=== PATIENT | male | born 1995 | race Caucasian/White ===

== ENCOUNTER 2022-05-28 17:04 | Inpatient (IN) ==
[2022-05-28] MEDS ORDERED: SODIUM CHLORIDE 0.9% 1000ML 2,000 ML IV ONE (17:44)
--- NOTE | 2022-05-28 17:45 | Emergency Department Note ---
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 She was concerned as he intermittently gets headaches and then will use Tylenol, Motrin, and other [id number] medications. She was concerned that he may have taken too much Tylenol. She generally takes the bottles away from him but sometimes he will walk to the [employer] store and purchase more. He notes he has not taken any for the past 2 days. He denies any headache or change in vision. No chest pain or shortness of breath. No belly pain. No nausea, vomiting, or diarrhea. No dysuria, urgency, or frequency. He denies all complaints at this time. Mom notes that he did get a little agitated last night which sometimes does happen. PAST MEDICAL HISTORY:See Below PAST SURGICAL HISTORY:See Below FAMILY HISTORY:See Below SOCIAL HISTORY:See Below HOME MEDICATIONS:See Below ALLERGIES:See Below VITALS:See Below PHYSICAL EXAMINATION: GENERAL: Sitting up in bed, alert, well appearing, well nourished, no distress, non-toxic EYE EXAM: normal conjunctiva. PERRL and EOM's grossly intact. OROPHARYNX: no exudate, no erythema, lips, buccal mucosa, and tongue normal and mucous membranes are moist NECK: supple, no nuchal rigidity, no adenopathy, non-tender LUNGS: Clear to auscultation. Normal chest wall mechanics HEART: no murmurs, S1 normal and S2 normal ABDOMEN: abdomen soft, non-tender, normo-active bowel sounds, no masses, no rebound or guarding. UPPER EXTREMITIES: upper extremities are grossly normal. LOWER EXTREMITIES: No pitting edema. NEURO EXAM: Normal sensorium, cranial nerves II-XII grossly intact, normal speech, no gross weakness of arms, no gross weakness of legs. 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 External records were reviewed. IV was established blood work was obtained. Labs show mild leukocytosis 17,000. No significant anemia. INR 1.2 mild transaminitis and a T bili of 1.2. Lipase was unremarkable. UA was clean. Tox was negative. COVID was negative. CT abdomen pelvis was unremarkable. Discussed with his per poison control. They recommended admission and N-acetylcysteine. This was given. Discussed with the hospitalist Dr. Calix regards to presentation work-up and conversation with poison control. He was in agreement to admit the patient for further work-up. Triage Nursing notes reviewed. Limited review of prior medical records performed Vital Signs: reviewed and remarkable for no significant abnormalities Differential diagnosis: Differential diagnoses includes but is not limited to gastritis, peptic ulcer disease, GERD, gallbladder disease, pancreatitis, small bowel obstruction, appendicitis, diverticulitis, hernia, urinary tract infection, torsion, perforation, trauma, infectious. ER treatment provided: See below Diagnostics interpreted by me include EKG and cardiac monitoring as listed below: -Cardiac Monitoring: An order was placed for continuous cardiac monitoring. The monitor shows a rate of 92 with sinus rhythm. -ECG: none -Laboratory studies:Interpreted by me as stated above in MDM and shown below. Imaging studies: Xrays: As interpreted by me:none CTs show: CT abdomen pelvis is unremarkable Consultation(s): Discussed with [place] poison control and they recommended starting N-acetylcysteine. discussed with the hospitalist for further evaluation admission Procedures:none Critical Care: None Past Med/Surg History Family History Other Hypertension No family history of adverse response to anesthesia No family history of bleeding disorder Social History Smoking Status: Never smoker Hx Alcohol Use: Yes Alcohol Intake Frequency Comment: 1-2 a week Hx Substance Use: No Preferred Language: [place] Feels Safe at Home: Yes Allergies Allergies Allergy/AdvReac Type Severity Reaction Status Date / Time No Known Drug Allergies Allergy Unknown Verified 05/28/22 20:30 Home Meds Previous Rx's Medication Instructions Recorded cholecalciferol (vitamin D3) 50 50 mcg PO TID #90 caps 08/24/21 mcg (2,000 unit) capsule nortriptyline 10 mg capsule 10 mg PO HS #30 caps 02/08/22 cyanocobalamin (vitamin B-12) 1,000 mcg IM .COMPLEX #1 mL 04/12/22 1,000 mcg/mL injection solution Results & Data (ED) Vital Signs Vital Signs - 24 hr 05/28/22 17:12 05/28/22 18:11 05/28/22 21:00 Temperature 36.6 C Temperature Source Temporal Artery Scan Pulse Rate 126 H Pulse Rate [Apical] 110 H 97 H Respiratory Rate 18 33 H 18 Respiratory Effort / Characteristics Non-Labored Spontaneous Respiratory Depth Normal Blood Pressure 148/98 H Blood Pressure [Right Arm] 155/92 H 151/86 H Blood Pressure Mean 114 Blood Pressure Mean [Right Arm] 113 107 Blood Pressure Position Sitting Pulse Oximetry 96 98 97 Oxygen Delivery Method Room Air Room Air Sepsis Recent Fever Within 48 Hours No Sepsis New/Unexplained Change in Mental Status N/A Sepsis Action Taken by Nursing No Action Required Laboratory Data 05/28/22 18:11 05/28/22 18:11 Lab Results 05/28/22 05/28/22 05/28/22 Range/Units 17:49 17:49 18:06 WBC (4.8-10.8) K/ul RBC (4.63-6.08) M/uL Hgb (14.0-18.0) g/dl Hct (40.1-51.0) % MCV (80.0-100.0) fL MCH (25.0-34.0) pg MCHC (32.0-36.0) g/dL RDW Std Deviation (36.4-46.3) fL RDW Coeff of Matthew (11.5-14.5) % Plt Count (130-400) K/uL MPV (9.4-12.4) fL Immature Gran % (Auto) % Neut % (Auto) % Lymph % (Auto) % [place] % (Auto) % Eos % (Auto) % Baso % (Auto) % Neut # (Auto) (1.4-6.5) K/uL Lymph # (Auto) (1.2-3.4) K/uL [place] # (Auto) (0.24-0.82) K/uL Eos # (Auto) (0-0.50) K/uL Baso # (Auto) (0-0.2) K/uL Immature Gran # (Auto) (0.00-0.02) K/uL PT (9.0-12.0) Seconds INR (0.9-1.1) APTT (21.0-31.0) Seconds PTT Ratio Sodium (136-145) mmol/L Potassium (3.5-5.1) mmol/L Chloride (98-107) mmol/L Carbon Dioxide (21-32) mmol/L Anion Gap (3-11) BUN (6-23) mg/dl Creatinine (0.6-1.4) mg/dl Est Cr Clr Drug Dosing ml/min Est GFR ( Amer) ml/min Est GFR (Non-Af Amer) ml/min BUN/Creatinine Ratio (10-20) Glucose (70-99(Fasting)) mg/dl Calcium (8.5-10.1) mg/dl Total Bilirubin (0.2-1.0) mg/dl AST (13-39) U/L ALT (7-52) U/L Alkaline Phosphatase (34-104) U/L Total Protein (6.0-8.3) gm/dl Albumin (3.4-5.0) gm/dl Globulin (2.5-4.0) gm/dl Albumin/Globulin Ratio (0.9-2) Lipase (11-82) U/L Urine Color Yellow Urine Appearance Clear (Clear) Urine pH 7.5 (4.5-7.5) Ur Specific [place] 1.023 (1.000-1.030) Urine Protein Trace H (Negative) Urine Glucose (UA) Negative (Negative) Urine Ketones Negative (Negative) Urine Blood Negative (Negative) Urine Nitrite Negative (Negative) Urine Bilirubin Negative (Negative) Urine Urobilinogen Negative (Negative) Ur Leukocyte Esterase Negative (Negative) Urine WBC (Auto) 1-5 (0-5) /hpf Urine RBC (Auto) 0-4 (0-4) /hpf U Hyaline Cast (Auto) 1-5 (0-5) /lpf U Epithel Cells (Auto) 10-20 H (0-5) /lpf Urine Bacteria (Auto) Negative (Negative) Salicylates (3.0-30) mg/dl Urine Opiates Screen Neg (Neg) Ur Methadone, Qual Neg (Neg) Acetaminophen (10-30) ug/ml Urine Barbiturates Neg (Neg) Ur Phencyclidine (PCP) Neg (Neg) U Amphetamin/Meth Scrn Neg (Neg) MDMA (Ecstasy) Screen Neg (Neg) U Benzodiazepines Scrn Neg (Neg) Ur Cocaine Metabolite Neg (Neg) U Marijuana (THC) Screen Neg (Neg) SARS-CoV-2, RNA, NAAT NEGATIVE (NEGATIVE) 05/28/22 05/28/22 05/28/22 Range/Units 18:11 18:11 18:11 WBC 17.75 H (4.8-10.8) K/ul RBC 5.43 (4.63-6.08) M/uL Hgb 16.4 (14.0-18.0) g/dl Hct 46.6 (40.1-51.0) % MCV 85.8 (80.0-100.0) fL MCH 30.2 (25.0-34.0) pg MCHC 35.2 (32.0-36.0) g/dL RDW Std Deviation 38.3 (36.4-46.3) fL RDW Coeff of Matthew 12.2 (11.5-14.5) % Plt Count 273 (130-400) K/uL MPV 9.5 (9.4-12.4) fL Immature Gran % (Auto) 0.3 % Neut % (Auto) 74.2 % Lymph % (Auto) 18.4 % [place] % (Auto) 6.4 % Eos % (Auto) 0.4 % Baso % (Auto) 0.3 % Neut # (Auto) 13.17 H (1.4-6.5) K/uL Lymph # (Auto) 3.26 (1.2-3.4) K/uL [place] # (Auto) 1.14 H (0.24-0.82) K/uL Eos # (Auto) 0.07 (0-0.50) K/uL Baso # (Auto) 0.06 (0-0.2) K/uL Immature Gran # (Auto) 0.05 H (0.00-0.02) K/uL PT 12.4 H (9.0-12.0) Seconds INR 1.2 H (0.9-1.1) APTT 27.9 (21.0-31.0) Seconds PTT Ratio 1.0 Sodium 140 (136-145) mmol/L Potassium 3.6 (3.5-5.1) mmol/L Chloride 107 (98-107) mmol/L Carbon Dioxide 23 (21-32) mmol/L Anion Gap 10 (3-11) BUN 19 (6-23) mg/dl Creatinine 0.84 (0.6-1.4) mg/dl Est Cr Clr Drug Dosing 177.7 ml/min Est GFR ( Amer) 138.1 ml/min Est GFR (Non-Af Amer) 119.2 ml/min BUN/Creatinine Ratio 22.6 H (10-20) Glucose 92 (70-99(Fasting)) mg/dl Calcium 9.5 (8.5-10.1) mg/dl Total Bilirubin 1.2 H (0.2-1.0) mg/dl AST 53 H (13-39) U/L ALT 75 H (7-52) U/L Alkaline Phosphatase 56 (34-104) U/L Total Protein 7.6 (6.0-8.3) gm/dl Albumin 4.5 (3.4-5.0) gm/dl Globulin 3.1 (2.5-4.0) gm/dl Albumin/Globulin Ratio 1.5 (0.9-2) Lipase 45 (11-82) U/L Urine Color Urine Appearance (Clear) Urine pH (4.5-7.5) Ur Specific [place] (1.000-1.030) Urine Protein (Negative) Urine Glucose (UA) (Negative) Urine Ketones (Negative) Urine Blood (Negative) Urine Nitrite (Negative) Urine Bilirubin (Negative) Urine Urobilinogen (Negative) Ur Leukocyte Esterase (Negative) Urine WBC (Auto) (0-5) /hpf Urine RBC (Auto) (0-4) /hpf U Hyaline Cast (Auto) (0-5) /lpf U Epithel Cells (Auto) (0-5) /lpf Urine Bacteria (Auto) (Negative) Salicylates (3.0-30) mg/dl Urine Opiates Screen (Neg) Ur Methadone, Qual (Neg) Acetaminophen (10-30) ug/ml Urine Barbiturates (Neg) Ur Phencyclidine (PCP) (Neg) U Amphetamin/Meth Scrn (Neg) MDMA (Ecstasy) Screen (Neg) U Benzodiazepines Scrn (Neg) Ur Cocaine Metabolite (Neg) U Marijuana (THC) Screen (Neg) SARS-CoV-2, RNA, NAAT (NEGATIVE) 05/28/22 05/28/22 Range/Units 18:11 21:04 WBC (4.8-10.8) K/ul RBC (4.63-6.08) M/uL Hgb (14.0-18.0) g/dl Hct (40.1-51.0) % MCV (80.0-100.0) fL MCH (25.0-34.0) pg MCHC (32.0-36.0) g/dL RDW Std Deviation (36.4-46.3) fL RDW Coeff of Matthew (11.5-14.5) % Plt Count (130-400) K/uL MPV (9.4-12.4) fL Immature Gran % (Auto) % Neut % (Auto) % Lymph % (Auto) % [place] % (Auto) % Eos % (Auto) % Baso % (Auto) % Neut # (Auto) (1.4-6.5) K/uL Lymph # (Auto) (1.2-3.4) K/uL [place] # (Auto) (0.24-0.82) K/uL Eos # (Auto) (0-0.50) K/uL Baso # (Auto) (0-0.2) K/uL Immature Gran # (Auto) (0.00-0.02) K/uL PT (9.0-12.0) Seconds INR (0.9-1.1) APTT (21.0-31.0) Seconds PTT Ratio Sodium (136-145) mmol/L Potassium (3.5-5.1) mmol/L Chloride (98-107) mmol/L Carbon Dioxide (21-32) mmol/L Anion Gap (3-11) BUN (6-23) mg/dl Creatinine (0.6-1.4) mg/dl Est Cr Clr Drug Dosing ml/min Est GFR ( Amer) ml/min Est GFR (Non-Af Amer) ml/min BUN/Creatinine Ratio (10-20) Glucose (70-99(Fasting)) mg/dl Calcium (8.5-10.1) mg/dl Total Bilirubin (0.2-1.0) mg/dl AST (13-39) U/L ALT (7-52) U/L Alkaline Phosphatase (34-104) U/L Total Protein (6.0-8.3) gm/dl Albumin (3.4-5.0) gm/dl Globulin (2.5-4.0) gm/dl Albumin/Globulin Ratio (0.9-2) Lipase (11-82) U/L Urine Color Urine Appearance (Clear) Urine pH (4.5-7.5) Ur Specific [place] (1.000-1.030) Urine Protein (Negative) Urine Glucose (UA) (Negative) Urine Ketones (Negative) Urine Blood (Negative) Urine Nitrite (Negative) Urine Bilirubin (Negative) Urine Urobilinogen (Negative) Ur Leukocyte Esterase (Negative) Urine WBC (Auto) (0-5) /hpf Urine RBC (Auto) (0-4) /hpf U Hyaline Cast (Auto) (0-5) /lpf U Epithel Cells (Auto) (0-5) /lpf Urine Bacteria (Auto) (Negative) Salicylates < 3.0 L (3.0-30) mg/dl Urine Opiates Screen (Neg) Ur Methadone, Qual (Neg) Acetaminophen < 3 L (10-30) ug/ml Urine Barbiturates (Neg) Ur Phencyclidine (PCP) (Neg) U Amphetamin/Meth Scrn (Neg) MDMA (Ecstasy) Screen (Neg) U Benzodiazepines Scrn (Neg) Ur Cocaine Metabolite (Neg) U Marijuana (THC) Screen (Neg) SARS-CoV-2, RNA, NAAT NEGATIVE (NEGATIVE) Administered Medications Discontinued Medications Sodium Chloride (Nss 1000ml) 2,000 mls @ 999 mls/hr IV .Q2H1M ONE Stop: 05/28/22 19:44 Last Infusion: 05/28/22 21:42 Dose: 0 mls/hr Documented By: Admin: 05/28/22 18:09 Dose: 999 mls/hr Documented By: LUCINDA Acetylcysteine 15,000 mg/ (Dextrose) 275 mls @ 275 mls/hr IV NOW ONE; Protocol Stop: 05/28/22 22:44 Last Admin: 05/28/22 22:00 Dose: 275 mls/hr Documented By: ELIZABETH Ioversol (Optiray 350 100ml) 87 ml IV ONCE ONE Stop: 05/28/22 19:31 Last Admin: 05/28/22 19:31 Dose: 87 ml Documented By: JASON Imaging Data Radiologist's Impression: Abdomen/Pelvis CT 05/28/22 17:[address] WITH IV CONTRAST CT DOSE: 1625.35 mGy.cm HISTORY: Acute generalized abdominal pain abd pain TECHNIQUE: Multiaxial CT images of the abdomen and pelvis were performed following the IV administration of 87 cc of Optiray, A dose lowering technique was utilized adhering to the principles of ALARA. COMPARISON STUDY: None. FINDINGS: Study is mildly degraded by respiratory motion artifact. Clear lung bases. No pneumatosis or pneumoperitoneum. Unremarkable spleen, pancreas and adrenal glands. Hepatic steatosis. 9 mm hypodensity of the hepatic dome, too small to characterize. Contracted gallbladder. Patent portal vein. Unremarkable kidneys. There is no hydronephrosis. Unremarkable urinary bladder. Aorta and IVC are unremarkable. There is no lymphadenopathy. No bowel obstruction or bowel wall thickening. No ascites or mesenteric inflammation. Mild colonic fecal retention. Scattered small bowel air-fluid levels are likely physiologic. No acute fracture identified. Transitional lumbos acral anatomy. Normal appendix. Unremarkable soft tissues. IMPRESSION: 1. No acute intra-abdominal or intrapelvic abnormality. 2. No bowel obstruction or bowel wall thickening. Normal appendix. ACT 112: Negative or not required by law. The above report was generated using voice recognition software. It may contain grammatical, syntax or spelling errors. Electronically signed by: Bg Flowers M.D. 05/28/2022 8:03 PM Discharge Plan Visit Data Chief Complaint: Abdominal Pain Stated Complaint: REF BY DOC,ABDOMINAL PAIN,TAKING TO MUCH COLD MEDS ED Provider: Sukhdev Rehman Discharge Problem: Unintentional Tylenol overdose, Leukocytosis, Transaminitis, Elevated INR Forms Stand Alone Forms: [employer] [facility] Prescriptions Prescriptions: No Action cholecalciferol (vitamin D3) 50 mcg (2,000 unit) capsule 50 mcg PO TID Qty: 90 8RF nortriptyline 10 mg capsule 10 mg PO HS Qty: 30 6RF cyanocobalamin (vitamin B-12) 1,000 mcg/mL solution 1,000 mcg IM .COMPLEX Qty: 1 5RF Rx Instructions: 1,000 mcg IM ONCE A MONTH; Referrals Referrals: Kevin Milton MD [Primary Care Provider] -
[2022-05-28 18:17] LABS: Appearance Urine Clear (Clear); Bacteria Urine Automated Negative (Negative); Bilirubin Urine Negative (Negative); Blood Urine Negative (Negative); Color Urine Yellow; Glucose Urine UA Negative (Negative); Ketones Urine Negative (Negative); Leukocyte Esterase Urine Negative (Negative); Nitrite Urine Negative (Negative); RBC Urine Automated 0-4 /hpf (0-4); Specific Gravity Urine 1.023 (1.000-1.030); Urobilinogen Urine Negative (Negative); pH Urine 7.5 (4.5-7.5)
[2022-05-28 18:29] LABS: Protein Urine Trace (Negative)
[2022-05-28 18:30] LABS: Basophils # (auto) 0.06 K/uL (0-0.2); Basophils % (auto) 0.3 %; Eosinophils # (auto) 0.07 K/uL (0-0.50); Eosinophils % (auto) 0.4 %; Hematocrit (blood only) 46.6 % (40.1-51.0); Hemoglobin 16.4 g/dl (14.0-18.0); Immature Granulocytes # (auto) 0.05 K/uL (0.00-0.02); Immature Granulocytes % (auto) 0.3 %; Lymphocytes # (auto) 3.26 K/uL (1.2-3.4); Lymphocytes % (auto) 18.4 %; Mean Corpuscular Hemoglobin 30.2 pg (25.0-34.0); Mean Corpuscular Hgb Conc 35.2 g/dL (32.0-36.0); Mean Corpuscular Volume 85.8 fL (80.0-100.0); Mean Platelet Volume 9.5 fL (9.4-12.4); Monocytes # (auto) 1.14 K/uL (0.24-0.82); Monocytes % (auto) 6.4 %; Neutrophils # (auto) 13.17 K/uL (1.4-6.5); Neutrophils % (auto) 74.2 %; Platelet Count 273 K/uL (130-400); RDW Coefficient of Variation 12.2 % (11.5-14.5); RDW Standard Deviation 38.3 fL (36.4-46.3); Red Blood Count 5.43 M/uL (4.63-6.08); White Blood Count 17.75 K/ul (4.8-10.8)
[2022-05-28 18:40] LABS: INR 1.2 (0.9-1.1); Partial Thromboplastin Time 27.9 Seconds (21.0-31.0); Prothrombin Time 12.4 Seconds (9.0-12.0)
[2022-05-28 18:51] LABS: Albumin Globulin Ratio 1.5 (0.9-2); Albumin Level 4.5 gm/dl (3.4-5.0); BUN Creatinine Ratio 22.6 (10-20); Bilirubin,Total 1.2 mg/dl (0.2-1.0); Calcium 9.5 mg/dl (8.5-10.1); Creatinine Clr Calc Pharmacy 177.7 ml/min; Est GFR (African American) 138.1 ml/min; Est GFR (Non-African American) 119.2 ml/min; Globulin 3.1 gm/dl (2.5-4.0); Potassium 3.6 mmol/L (3.5-5.1); Total Protein 7.6 gm/dl (6.0-8.3)
[2022-05-28 18:54] LABS: Amphetamines+Metham, Urine Neg (Neg); Barbiturates, Urine Neg (Neg); Benzodiazepine, Urine Neg (Neg); Cocaine, Urine Neg (Neg); MDMA (Ecstacy), Urine Neg (Neg); Methadone, Urine Neg (Neg); Opiate, Urine Neg (Neg); Phencyclidine, Urine Neg (Neg)
[2022-05-28 19:02] LABS: Acetaminophen < 3 ug/ml (10-30); Salicylate < 3.0 mg/dl (3.0-30)
[2022-05-28] MEDS ORDERED: OPTIRAY 350 100ml IV ONE (19:30)
--- NOTE | 2022-05-28 20:05 | CT Scan Report ---
ABDOMEN AND PELVIS CT WITH IV CONTRAST CT DOSE: 1625.35 mGy.cm HISTORY: Acute generalized abdominal pain abd pain TECHNIQUE: Multiaxial CT images of the abdomen and pelvis were performed following the IV administrat ion of 87 cc of Optiray, A dose lowering technique was utilized adhering to the principles of ALARA. COMPARISON STUDY: None. FINDINGS: Study is mildly degraded by respiratory motion artifact. Clear lung bases. No pneumatosis o r pneumoperitoneum. Unremarkable spleen, pancreas and adrenal glands. Hepatic steatosis. 9 mm hypoden sity of the hepatic dome, too small to characterize. Contracted gallbladder. Patent portal vein. Unre markable kidneys. There is no hydronephrosis. Unremarkable urinary bladder. Aorta and IVC are unremar kable. There is no lymphadenopathy. No bowel obstruction or bowel wall thickening. No ascites or mesenteric inflammation. Mild colonic fe kiersten retention. Scattered small bowel air-fluid levels are likely physiologic. No acute fracture ident ified. Transitional lumbosacral anatomy. Normal appendix. Unremarkable soft tissues. IMPRESSION: 1. No acute intra-abdominal or intrapelvic abnormality. 2. No bowel obstruction or bowel wall thickening. Normal appendix. ACT 112: Negative or not required by law. The above report was generated using voice recognition software. It may contain grammatical, syntax o r spelling errors. Electronically signed by: Bg Flowers M.D. 05/28/2022 8:03 PM
[2022-05-28] MEDS ORDERED: AcetylCYSTEINE 15,000 MG in D5W 200mL (Load) IV ONE (21:45)
[2022-05-28] MEDS ORDERED: AcetylCYSTEINE 5,000mg in D5W 500mL (Maint Dose #1) IV ONE (23:00)
[2022-05-29] MEDS ORDERED: NITROGLYCERIN SL 0.4 MG/TAB TAB SL PRN (01:26)
--- NOTE | 2022-05-29 02:08 | History and Physical Report ---
DATE OF ADMISSION: 05/28/2022. CHIEF COMPLAINT: Possible Tylenol toxicity. HISTORY OF PRESENT ILLNESS: A 26-year-old male with past medical history significant for developmental articulation disorder, developmental coordination disorder, high functioning mental disorder. He lives with his mom. As per the mom, he goes to a full-time job. Last 2 to 3 months, he is having headaches. He takes Tylenol and Motrin also. He takes Tylenol and after 10 minutes he says the pain is not gone and asks for more medication. As per mother, he does not understand that he should not take the extra pills, and she is worried that he is taking more than usual medications. About one month ago, he also got somewhat agitated because of the pain. On and off, he gets some nausea and vomiting. No recent fever or chills. In the morning, he gets cough. The patient is currently resting comfortably, hemodynamically stable. Currently, denies any headache or abdominal pain. As per mother, he was lately also complaining of some abdominal pain. Currently, denies any nausea. Currently, denies any chest pain or cough. He says he is ghaving normal bowel and bladder movements. He is ambulating okay. His appetite is okay. His total bilirubin is 1.2, AST 53, ALT 75. Poison Control recommended N-acetylcysteine protocol and check the LFTs again after 12 hours from the hanging of the third bag. His Tylenol level is okay, less than 3. Salicylate level is less than 3, and his urine drug screen is negative. ALLERGIES: No known drug allergies. PAST MEDICAL HISTORY: As mentioned above. PAST SURGICAL HISTORY: None. MEDICATIONS: The patient is on vitamin D 50 mcg p.o. t.i.d., vitamin B12 1000 mcg injection monthly, nortriptyline 10 mg p.o. at bedtime. FAMILY HISTORY: No known family history. SOCIAL HISTORY: Lives with mom. No smoking, no alcohol, no drug use. REVIEW OF SYSTEMS: As per HPI. Rest of review of systems is negative. PHYSICAL EXAMINATION: GENERAL: The patient is of moderate build, not in acute distress. VITAL SIGNS: Temperature 36.6, pulse 97, respiratory rate 18, blood pressure 151/86, oxygen 97% on room air. HEENT: Pupils equal, round, and reactive to light. Oral mucosa moist. NECK: No JVD, no neck masses. CARDIOVASCULAR: S1 and S2 heard. Regular rate and rhythm. No murmur, no gallop. RESPIRATORY SYSTEM: Normal AP diameter. No accessory muscle use. No wheezing or crackles. ABDOMEN: Soft, bowel sounds present, nontender, no distention. CENTRAL NERVOUS SYSTEM: Alert and oriented x3. Speech is clear. Obeys simple commands. Moves extremities. EXTREMITIES: No edema, no erythema. LABORATORY DATA: WBC 17.7, hemoglobin 16.4, hematocrit 46.6, platelets 273. PT 12.4, INR 1.2, APTT 27.9. Sodium 140, potassium 3.6, chloride 107, bicarbonate 23, BUN 19, creatinine 0.8, serum glucose 92, calcium 9.5, total bilirubin 1.2, AST 53, ALT 75, alkaline phosphatase 56, lipase 45. Urinalysis negative. Urine drug screen negative. SARS-CoV-2 rapid test negative. IMAGING DATA: CT of abdomen and pelvis with IV contrast, no acute findings. ASSESSMENT AND PLAN: This is a 26-year-old male with high function developmental delay, who presents with possible Tylenol toxicity. The patient has a chronic headache, taking Tylenol and Motrin more than he is supposed to take as per mother. 1. Possible Tylenol toxicity: LFTs, mild elevation. Poison Control recommended N-acetylcysteine and to check the LFTs again 12 hours after hanging the third bag. Will monitor in the [facility]. IV fluids. Will keep on clear liquid diet for now. Will also consult psychiatry. 2. Chronic headaches: Seems to be following with neurology currently. Will consult neurology while in the hospital. Will hold all his home medications for now. 3. Deep venous thrombosis prophylaxis: Sequential compression devices. DISPOSITION: Admit to [facility]. PT/OT prior to discharge. Social service to help with discharge planning. Mother likes to get a call about further updates. Job ID: [id number] [facility]
[2022-05-29] MEDS: SODIUM CHLORIDE 0.9% 1000ML 1,000 ML IV SCH ×2 (02:11→11:22)
[2022-05-29] MEDS ORDERED: AcetylCYSTEINE 10,000 MG in D5W 1L (Maint Dose #2) IV ONE (03:00)
[2022-05-29 06:06] LABS: Basophils # (auto) 0.04 K/uL (0-0.2); Basophils % (auto) 0.4 %; Eosinophils # (auto) 0.12 K/uL (0-0.50); Eosinophils % (auto) 1.2 %; Hematocrit (blood only) 42.3 % (40.1-51.0); Hemoglobin 15.3 g/dl (14.0-18.0); Immature Granulocytes # (auto) 0.03 K/uL (0.00-0.02); Immature Granulocytes % (auto) 0.3 %; Lymphocytes # (auto) 3.13 K/uL (1.2-3.4); Mean Corpuscular Hemoglobin 30.9 pg (25.0-34.0); Mean Corpuscular Hgb Conc 36.2 g/dL (32.0-36.0); Mean Corpuscular Volume 85.5 fL (80.0-100.0); Mean Platelet Volume 9.4 fL (9.4-12.4); Monocytes # (auto) 0.83 K/uL (0.24-0.82); Neutrophils # (auto) 6.28 K/uL (1.4-6.5); Neutrophils % (auto) 60.1 %; Platelet Count 217 K/uL (130-400); RDW Coefficient of Variation 12.3 % (11.5-14.5); RDW Standard Deviation 37.9 fL (36.4-46.3); Red Blood Count 4.95 M/uL (4.63-6.08); White Blood Count 10.43 K/ul (4.8-10.8)
[2022-05-29 06:41] LABS: Albumin Level 3.9 gm/dl (3.4-5.0); Bilirubin Direct 0.3 mg/dl (0-0.2); Bilirubin,Total 1.6 mg/dl (0.2-1.0); Calcium 8.4 mg/dl (8.5-10.1); Magnesium 1.9 mg/dl (1.7-2.4); Potassium 3.5 mmol/L (3.5-5.1)
[2022-05-29 06:47] LABS: BUN Creatinine Ratio 19.2 (10-20); Creatinine Clr Calc Pharmacy 204.5 ml/min; Est GFR (African American) 146.3 ml/min; Est GFR (Non-African American) 126.2 ml/min; Total Protein 6.3 gm/dl (6.0-8.3)
--- NOTE | 2022-05-29 07:40 | Hospitalist Progress Note ---
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 The patient has a chronic headache, taking Tylenol and Motrin more than he is supposed to take as per mother. 1. Possible Tylenol toxicity: LFTs, mild elevation. Poison Control recommended N-acetylcysteine and to check the LFTs again 12 hours after hanging the third bag. IV N-acetylcysteine started in the ED. Currently continues. LFTs only mildly elevated, T bili 1.6. Plan to recheck LFTs at 4 PM. Discussed with GI, delfinaay to restart diet. Also discussed with psychiatry at the bedside, given impulsivity, taking more medication than he is supposed to. Patient also seen by neurologist, recommends increasing nortriptyline from 10 mg nightly to 20 mg nightly. Patient should follow-up with his neurologist as outpatient. He can also try as needed use of triptans, such as Maxalt 10 mg SL p.o. as needed for breakthrough headache. 2. Chronic headaches: Follows with neurology, consulted while inpatient, recommendations as above. DVT prophylaxis: SCDs DISPOSITION:Plan to DC home if PM labwork stable Admission and Anticipated Discharge Date Admission Date: May 28, 2022 Subjective Patient seen in follow-up of possible tylenol overdose Patient is currently laying in bed, in no acute distress He is awake alert, able to answer simple questions appropriately Denies any abdominal pain, denies any headache No nausea, vomiting No fevers or chills, no chest pain or shortness of breath Started on IV NAC per poison control, in the ED Mother present at the bedside and updated. Psychiatry at the bedside as well. Review of Systems Review of Systems: All systems reviewed & are unremarkable except as noted in Subjective Physical Exam Physical Exam: GENERAL: The patient is of moderate build, young M not in acute distress. HEENT: NC/AT, EOMI, Pupils equal, round, and reactive to light. Oral mucosa moist. NECK: No JVD, no neck masses. CARDIOVASCULAR: S1 and S2 heard. Regular rate and rhythm. No murmur, no gallop. RESPIRATORY: Normal AP diameter. No accessory muscle use. No wheezing or crackles. ABDOMEN: Soft, bowel sounds present, nontender, no distention. NEURO: Alert and oriented x3. Speech is clear. Obeys simple commands. Moves extremities. EXTREMITIES: No edema, no erythema. Results & Data Results & Data ([facility]) Vital Signs (Past 12 Hours) Vital Signs Temp Pulse Pulse Resp BP BP BP 05/29/22 01:20 106 H 05/29/22 02:19 36.8 C 96 H 18 128/83 05/29/22 01:26 36.8 C 96 H 20 147/86 H 05/29/22 00:45 117 H 18 176/92 H 05/28/22 23:00 102 H 16 146/94 H 05/28/22 23:01 101 H 139/90 05/28/22 21:00 97 H 18 151/86 H Pulse Ox O2 Del Method 05/29/22 01:20 05/29/22 02:19 96 Room Air 05/29/22 01:26 97 Room Air 05/29/22 00:45 96 Room Air 05/28/22 23:00 96 Room Air 05/28/22 23:01 96 Room Air 05/28/22 21:00 97 Laboratory Results 05/29/22 05/29/22 05/28/22 Range/Units 05:37 05:37 21:04 WBC 10.43 (4.8-10.8) K/ul RBC 4.95 (4.63-6.08) M/uL Hgb 15.3 (14.0-18.0) g/dl Hct 42.3 (40.1-51.0) % MCV 85.5 (80.0-100.0) fL MCH 30.9 (25.0-34.0) pg MCHC 36.2 H (32.0-36.0) g/dL RDW Std Deviation 37.9 (36.4-46.3) fL RDW Coeff of Matthew 12.3 (11.5-14.5) % Plt Count 217 (130-400) K/uL MPV 9.4 (9.4-12.4) fL Immature Gran % (Auto) 0.3 % Neut % (Auto) 60.1 % Lymph % (Auto) 30.0 % Wood % (Auto) 8.0 % Eos % (Auto) 1.2 % Baso % (Auto) 0.4 % Neut # (Auto) 6.28 (1.4-6.5) K/uL Lymph # (Auto) 3.13 (1.2-3.4) K/uL Wood # (Auto) 0.83 H (0.24-0.82) K/uL Eos # (Auto) 0.12 (0-0.50) K/uL Baso # (Auto) 0.04 (0-0.2) K/uL Immature Gran # (Auto) 0.03 H (0.00-0.02) K/uL PT (9.0-12.0) Seconds INR (0.9-1.1) APTT (21.0-31.0) Seconds PTT Ratio Sodium 140 (136-145) mmol/L Potassium 3.5 (3.5-5.1) mmol/L Chloride 108 H (98-107) mmol/L Carbon Dioxide 23 (21-32) mmol/L Anion Gap 9 (3-11) BUN 14 (6-23) mg/dl Creatinine 0.73 (0.6-1.4) mg/dl Est Cr Clr Drug Dosing 204.5 ml/min Est GFR ( Amer) 146.3 ml/min Est GFR (Non-Af Amer) 126.2 ml/min BUN/Creatinine Ratio 19.2 (10-20) Glucose 113 H (70-99(Fasting)) mg/dl Calcium 8.4 L (8.5-10.1) mg/dl Magnesium 1.9 (1.7-2.4) mg/dl Total Bilirubin 1.6 H (0.2-1.0) mg/dl Direct Bilirubin 0.3 H (0-0.2) mg/dl AST 35 (13-39) U/L ALT 60 H (7-52) U/L Alkaline Phosphatase 44 (34-104) U/L Total Protein 6.3 (6.0-8.3) gm/dl Albumin 3.9 (3.4-5.0) gm/dl Globulin (2.5-4.0) gm/dl Albumin/Globulin Ratio (0.9-2) Lipase (11-82) U/L Urine Color Urine Appearance (Clear) Urine pH (4.5-7.5) Ur Specific [place] (1.000-1.030) Urine Protein (Negative) Urine Glucose (UA) (Negative) Urine Ketones (Negative) Urine Blood (Negative) Urine Nitrite (Negative) Urine Bilirubin (Negative) Urine Urobilinogen (Negative) Ur Leukocyte Esterase (Negative) Urine WBC (Auto) (0-5) /hpf Urine RBC (Auto) (0-4) /hpf U Hyaline Cast (Auto) (0-5) /lpf U Epithel Cells (Auto) (0-5) /lpf Urine Bacteria (Auto) (Negative) Salicylates (3.0-30) mg/dl Urine Opiates Screen (Neg) Ur Methadone, Qual (Neg) Acetaminophen (10-30) ug/ml Urine Barbiturates (Neg) Ur Phencyclidine (PCP) (Neg) U Amphetamin/Meth Scrn (Neg) MDMA (Ecstasy) Screen (Neg) U Benzodiazepines Scrn (Neg) Ur Cocaine Metabolite (Neg) U Marijuana (THC) Screen (Neg) SARS-CoV-2, RNA, NAAT NEGATIVE (NEGATIVE) 05/28/22 05/28/22 05/28/22 Range/Units 18:11 18:11 18:11 WBC (4.8-10.8) K/ul RBC (4.63-6.08) M/uL Hgb (14.0-18.0) g/dl Hct (40.1-51.0) % MCV (80.0-100.0) fL MCH (25.0-34.0) pg MCHC (32.0-36.0) g/dL RDW Std Deviation (36.4-46.3) fL RDW Coeff of Matthew (11.5-14.5) % Plt Count (130-400) K/uL MPV (9.4-12.4) fL Immature Gran % (Auto) % Neut % (Auto) % Lymph % (Auto) % Wood % (Auto) % Eos % (Auto) % Baso % (Auto) % Neut # (Auto) (1.4-6.5) K/uL Lymph # (Auto) (1.2-3.4) K/uL Wood # (Auto) (0.24-0.82) K/uL Eos # (Auto) (0-0.50) K/uL Baso # (Auto) (0-0.2) K/uL Immature Gran # (Auto) (0.00-0.02) K/uL PT 12.4 H (9.0-12.0) Seconds INR 1.2 H (0.9-1.1) APTT 27.9 (21.0-31.0) Seconds PTT Ratio 1.0 Sodium 140 (136-145) mmol/L Potassium 3.6 (3.5-5.1) mmol/L Chloride 107 (98-107) mmol/L Carbon Dioxide 23 (21-32) mmol/L Anion Gap 10 (3-11) BUN 19 (6-23) mg/dl Creatinine 0.84 (0.6-1.4) mg/dl Est Cr Clr Drug Dosing 177.7 ml/min Est GFR ( Amer) 138.1 ml/min Est GFR (Non-Af Amer) 119.2 ml/min BUN/Creatinine Ratio 22.6 H (10-20) Glucose 92 (70-99(Fasting)) mg/dl Calcium 9.5 (8.5-10.1) mg/dl Magnesium (1.7-2.4) mg/dl Total Bilirubin 1.2 H (0.2-1.0) mg/dl Direct Bilirubin (0-0.2) mg/dl AST 53 H (13-39) U/L ALT 75 H (7-52) U/L Alkaline Phosphatase 56 (34-104) U/L Total Protein 7.6 (6.0-8.3) gm/dl Albumin 4.5 (3.4-5.0) gm/dl Globulin 3.1 (2.5-4.0) gm/dl Albumin/Globulin Ratio 1.5 (0.9-2) Lipase 45 (11-82) U/L Urine Color Urine Appearance (Clear) Urine pH (4.5-7.5) Ur Specific [place] (1.000-1.030) Urine Protein (Negative) Urine Glucose (UA) (Negative) Urine Ketones (Negative) Urine Blood (Negative) Urine Nitrite (Negative) Urine Bilirubin (Negative) Urine Urobilinogen (Negative) Ur Leukocyte Esterase (Negative) Urine WBC (Auto) (0-5) /hpf Urine RBC (Auto) (0-4) /hpf U Hyaline Cast (Auto) (0-5) /lpf U Epithel Cells (Auto) (0-5) /lpf Urine Bacteria (Auto) (Negative) Salicylates < 3.0 L (3.0-30) mg/dl Urine Opiates Screen (Neg) Ur Methadone, Qual (Neg) Acetaminophen < 3 L (10-30) ug/ml Urine Barbiturates (Neg) Ur Phencyclidine (PCP) (Neg) U Amphetamin/Meth Scrn (Neg) MDMA (Ecstasy) Screen (Neg) U Benzodiazepines Scrn (Neg) Ur Cocaine Metabolite (Neg) U Marijuana (THC) Screen (Neg) SARS-CoV-2, RNA, NAAT (NEGATIVE) 05/28/22 05/28/22 05/28/22 Range/Units 18:11 18:06 17:49 WBC 17.75 H (4.8-10.8) K/ul RBC 5.43 (4.63-6.08) M/uL Hgb 16.4 (14.0-18.0) g/dl Hct 46.6 (40.1-51.0) % MCV 85.8 (80.0-100.0) fL MCH 30.2 (25.0-34.0) pg MCHC 35.2 (32.0-36.0) g/dL RDW Std Deviation 38.3 (36.4-46.3) fL RDW Coeff of Matthew 12.2 (11.5-14.5) % Plt Count 273 (130-400) K/uL MPV 9.5 (9.4-12.4) fL Immature Gran % (Auto) 0.3 % Neut % (Auto) 74.2 % Lymph % (Auto) 18.4 % Wood % (Auto) 6.4 % Eos % (Auto) 0.4 % Baso % (Auto) 0.3 % Neut # (Auto) 13.17 H (1.4-6.5) K/uL Lymph # (Auto) 3.26 (1.2-3.4) K/uL Wood # (Auto) 1.14 H (0.24-0.82) K/uL Eos # (Auto) 0.07 (0-0.50) K/uL Baso # (Auto) 0.06 (0-0.2) K/uL Immature Gran # (Auto) 0.05 H (0.00-0.02) K/uL PT (9.0-12.0) Seconds INR (0.9-1.1) APTT (21.0-31.0) Seconds PTT Ratio Sodium (136-145) mmol/L Potassium (3.5-5.1) mmol/L Chloride (98-107) mmol/L Carbon Dioxide (21-32) mmol/L Anion Gap (3-11) BUN (6-23) mg/dl Creatinine (0.6-1.4) mg/dl Est Cr Clr Drug Dosing ml/min Est GFR ( Amer) ml/min Est GFR (Non-Af Amer) ml/min BUN/Creatinine Ratio (10-20) Glucose (70-99(Fasting)) mg/dl Calcium (8.5-10.1) mg/dl Magnesium (1.7-2.4) mg/dl Total Bilirubin (0.2-1.0) mg/dl Direct Bilirubin (0-0.2) mg/dl AST (13-39) U/L ALT (7-52) U/L Alkaline Phosphatase (34-104) U/L Total Protein (6.0-8.3) gm/dl Albumin (3.4-5.0) gm/dl Globulin (2.5-4.0) gm/dl Albumin/Globulin Ratio (0.9-2) Lipase (11-82) U/L Urine Color Urine Appearance (Clear) Urine pH (4.5-7.5) Ur Specific [place] (1.000-1.030) Urine Protein (Negative) Urine Glucose (UA) (Negative) Urine Ketones (Negative) Urine Blood (Negative) Urine Nitrite (Negative) Urine Bilirubin (Negative) Urine Urobilinogen (Negative) Ur Leukocyte Esterase (Negative) Urine WBC (Auto) (0-5) /hpf Urine RBC (Auto) (0-4) /hpf U Hyaline Cast (Auto) (0-5) /lpf U Epithel Cells (Auto) (0-5) /lpf Urine Bacteria (Auto) (Negative) Salicylates (3.0-30) mg/dl Urine Opiates Screen Neg (Neg) Ur Methadone, Qual Neg (Neg) Acetaminophen (10-30) ug/ml Urine Barbiturates Neg (Neg) Ur Phencyclidine (PCP) Neg (Neg) U Amphetamin/Meth Scrn Neg (Neg) MDMA (Ecstasy) Screen Neg (Neg) U Benzodiazepines Scrn Neg (Neg) Ur Cocaine Metabolite Neg (Neg) U Marijuana (THC) Screen Neg (Neg) SARS-CoV-2, RNA, NAAT NEGATIVE (NEGATIVE) 05/28/22 Range/Units 17:49 WBC (4.8-10.8) K/ul RBC (4.63-6.08) M/uL Hgb (14.0-18.0) g/dl Hct (40.1-51.0) % MCV (80.0-100.0) fL MCH (25.0-34.0) pg MCHC (32.0-36.0) g/dL RDW Std Deviation (36.4-46.3) fL RDW Coeff of Matthew (11.5-14.5) % Plt Count (130-400) K/uL MPV (9.4-12.4) fL Immature Gran % (Auto) % Neut % (Auto) % Lymph % (Auto) % Wood % (Auto) % Eos % (Auto) % Baso % (Auto) % Neut # (Auto) (1.4-6.5) K/uL Lymph # (Auto) (1.2-3.4) K/uL Wood # (Auto) (0.24-0.82) K/uL Eos # (Auto) (0-0.50) K/uL Baso # (Auto) (0-0.2) K/uL Immature Gran # (Auto) (0.00-0.02) K/uL PT (9.0-12.0) Seconds INR (0.9-1.1) APTT (21.0-31.0) Seconds PTT Ratio Sodium (136-145) mmol/L Potassium (3.5-5.1) mmol/L Chloride (98-107) mmol/L Carbon Dioxide (21-32) mmol/L Anion Gap (3-11) BUN (6-23) mg/dl Creatinine (0.6-1.4) mg/dl Est Cr Clr Drug Dosing ml/min Est GFR ( Amer) ml/min Est GFR (Non-Af Amer) ml/min BUN/Creatinine Ratio (10-20) Glucose (70-99(Fasting)) mg/dl Calcium (8.5-10.1) mg/dl Magnesium (1.7-2.4) mg/dl Total Bilirubin (0.2-1.0) mg/dl Direct Bilirubin (0-0.2) mg/dl AST (13-39) U/L ALT (7-52) U/L Alkaline Phosphatase (34-104) U/L Total Protein (6.0-8.3) gm/dl Albumin (3.4-5.0) gm/dl Globulin (2.5-4.0) gm/dl Albumin/Globulin Ratio (0.9-2) Lipase (11-82) U/L Urine Color Yellow Urine Appearance Clear (Clear) Urine pH 7.5 (4.5-7.5) Ur Specific [place] 1.023 (1.000-1.030) Urine Protein Trace H (Negative) Urine Glucose (UA) Negative (Negative) Urine Ketones Negative (Negative) Urine Blood Negative (Negative) Urine Nitrite Negative (Negative) Urine Bilirubin Negative (Negative) Urine Urobilinogen Negative (Negative) Ur Leukocyte Esterase Negative (Negative) Urine WBC (Auto) 1-5 (0-5) /hpf Urine RBC (Auto) 0-4 (0-4) /hpf U Hyaline Cast (Auto) 1-5 (0-5) /lpf U Epithel Cells (Auto) 10-20 H (0-5) /lpf Urine Bacteria (Auto) Negative (Negative) Salicylates (3.0-30) mg/dl Urine Opiates Screen (Neg) Ur Methadone, Qual (Neg) Acetaminophen (10-30) ug/ml Urine Barbiturates (Neg) Ur Phencyclidine (PCP) (Neg) U Amphetamin/Meth Scrn (Neg) MDMA (Ecstasy) Screen (Neg) U Benzodiazepines Scrn (Neg) Ur Cocaine Metabolite (Neg) U Marijuana (THC) Screen (Neg) SARS-CoV-2, RNA, NAAT (NEGATIVE) Medications Administered Current Inpatient Medications Acetylcysteine 10,000 mg/ (Dextrose) 1,050 mls @ 65.625 mls/hr IV ONE ONE; Protocol Stop: 05/29/22 18:59 Last Admin: 05/29/22 04:30 Dose: 65.6 mls/hr Sodium Chloride (Nss 1000ml) 1,000 mls @ 125 mls/hr IV .Q8H JOHAN Stop: 06/28/22 01:25 Last Admin: 05/29/22 02:11 Dose: 125 mls/hr Nitroglycerin (Nitroglycerin Sl 0.4 Mg/Tab Tab) 0.4 mg SL UD PRN PRN Reason: Chest Pain Stop: 06/28/22 01:25
--- NOTE | 2022-05-29 11:49 | Neurology Consultation ---
Date of Consultation May 29, 2022 Assessment & Plan (1) Headache: Plan NEUROLOGY CONSULTATION Assessment & Plan: Impression: pt with headache syndrome, overall stable. [facility] Recommendations: -confirm if pt is taking his nightly pamelor 10mg po qhs (need to confirm with mom). if he is, then can increase to 20mg po qhs . ok to try prn use of triptans (e.g. maxalt 10mg SL po prn breakthrough headaches). avoid excessive use of NSAIDs and tylenol. -pt can f/u with his neurologist at [facility] as planned (Dr. Franco or Chelsie Escamilla). no further work up needed from neurology stand point. call again if new question. Dr. Tyrel Vela MD [facility] Neurology Chief Complaint: History of Present Illness: HPI: pt this morning appears very comfortable. not complaining of headache. [facility], Dr. Franco and Chelsie Escamilla. pt is supposed to be on pamelor 10mg po qhs, not sure if he is taking this med. pt being monitored for possible tylenol toxicity. pt otherwise stable and NAD. chart reviewed. Admission/Initial HPI documentation: A 26-year-old male with past medical history significant for developmental articulation disorder, developmental coordination disorder, high functioning mental disorder. He lives with his mom. As per the mom, he goes to a full-time job. Last 2 to 3 months, he is having headaches. He takes Tylenol and Motrin also. He takes Tylenol and after 10 minutes he says the pain is not gone and asks for more medication. As per mother, he does not understand that he should not take the extra pills, and she is worried that he is taking more than usual medications. About one month ago, he also got somewhat agitated because of the pain. On and off, he gets some nausea and vomiting. No recent fever or chills. In the morning, he gets cough. The patient is currently resting comfortably, hemodynamically stable. Currently, denies any headache or abdominal pain. As per mother, he was lately also complaining of some abdominal pain. Currently, denies any nausea. Currently, denies any chest pain or cough. He says he is ghaving normal bowel and bladder movements. He is ambulating okay. His appetite is okay. His total bilirubin is 1.2, AST 53, ALT 75. Poison Control recommended N-acetylcysteine protocol and check the LFTs again after 12 hours from the hanging of the third bag. His Tylenol level is okay, less than 3. Salicylate level is less than 3, and his urine drug screen is negative. Past Medical History: See chart Meds: See chart I personally reviewed all of the medications Social & Family History: See chart Review of Systems: Per initial HPI on admission. Physical Exam: GEN: NAD HEENT: Normocephalic Neuro: Mental status:A & O x 3.No dysarthria or aphasia.No neglect. Fluent speech. No apraxia, able to follow command well, baseline mental developmental delay. Cranial Nerves:II-XII intact Motor:Normal bulk and tone,5/5 strength x 4 extremities Coordination:Intact FTN testing Reflexes:+2 throughout, down going toes crystal Sensation: Intact x 4 extremities to touch Gait:intact Chart reviewed I have spent more than 50% educating patient about potential diagnosis and neurological evaluation and coordinating care with patient's treatment team. Total time spent (including chart review and coordination of care): 80 min (this includes chart review). History of Present Illness Attending Physician: Lopez Mederos MD Allergies Allergy/AdvReac Type Severity Reaction Status Date / Time No Known Drug Allergies Allergy Unknown Verified 05/28/22 20:30 Home Medications Medication Instructions Recorded Confirmed Type cholecalciferol (vitamin D3) 50 50 mcg PO TID #90 caps 08/24/21 05/28/22 Rx mcg (2,000 unit) capsule nortriptyline 10 mg capsule 10 mg PO HS #30 caps 02/08/22 05/28/22 Rx cyanocobalamin (vitamin B-12) 1,000 mcg IM .COMPLEX #1 mL 04/12/22 05/28/22 Rx 1,000 mcg/mL injection solution Patient History Family History Other Hypertension No family history of adverse response to anesthesia No family history of bleeding disorder Social History Smoking Status: Never smoker Second Hand Exposure: No; Do You Dip or Chew Tobacco: No; Hx Alcohol Use: Yes Alcohol type: beer Alcohol Intake Frequency Comment: 1-2 a week Hx Substance Use: No Preferred Language: Montenegrin Communication Ability: Impaired Communication Ability Comment: Pt is mentally delayed Pole Incisor Operator Required: No Beliefs That Will Affect Care: None Current Living Situation: Family Other Information That Helps Us Care for You: No Feels Safe at Home: Yes Safety Concerns: Feels Safe At This Time Assistive Devices: None Results & Data ([facility]) Vital Signs (Past 12 Hours) Vital Signs Temp Pulse Pulse Pulse Resp BP BP 05/29/22 08:00 75 05/29/22 08:00 05/29/22 08:00 36.9 C 104 H 20 151/99 H 05/29/22 01:20 106 H 05/29/22 02:19 36.8 C 96 H 18 05/29/22 01:26 36.8 C 96 H 20 147/86 H 05/29/22 00:45 117 H 18 176/92 H BP Pulse Ox O2 Del Method 05/29/22 08:00 05/29/22 08:00 Room Air 05/29/22 08:00 97 Room Air 05/29/22 01:20 05/29/22 02:19 128/83 96 Room Air 05/29/22 01:26 97 Room Air 05/29/22 00:45 96 Room Air
--- NOTE | 2022-05-29 12:55 | Gastrointestinal Consultation ---
Date of Consultation May 29, 2022 Assessment & Plan (1) Abnormal LFTs (liver function tests): Plan 26-year-old male with past medical history significant for developmental articulation disorder, developmental coordination disorder, high functioning mental disorder. He lives with his mom.GI is consulted for elevated LFTs and concern for Tylenol overdose. He has no encephalopathy and INR is 1.2. He has no acute liver injury or acute liver failure. Tylenol levels negative. plan: -ok to stop IV NAC. LFTs are minimally elevated, total bili is 1.6, and INR is 1.2 -monitor LFTs and INR -monitor mentation -ok for regular diet or advance as tolerated Rhonda Canchola DO Gastroenterology and Hepatology History of Present Illness Reason for Consultation: concern for tylenol toxicity, elevated LFTs Attending Physician: Lopez Mederos MD History of Present Illness 26-year-old male with past medical history significant for developmental articulation disorder, developmental coordination disorder, high functioning mental disorder. He lives with his mom.GI is consulted for elevated LFTs and concern for Tylenol overdose. per HPI, he lives with his mom and had been having headaches the past few months and taking Tylenol. she was not sure how much he had been taking but was concerned he may have taken too much. Patient denies any abdominal pain, nausea, vomiting, or any symptoms at this time. When asked how much tylenol he was taking he just stated "1 cup" but unable to obtain any information form him. On admission tylenol levels were undetactable as well as salicylates. AST 53, ALT 75, total bili 1.2 -->1.6. UDS negative. WBC 17k, BUN 19, Cr 0.8, bicarb 23, lipase 45. He is currently on IV NAC per poison control. Allergies Allergy/AdvReac Type Severity Reaction Status Date / Time No Known Drug Allergies Allergy Unknown Verified 05/28/22 20:30 Home Medications Medication Instructions Recorded Confirmed Type cholecalciferol (vitamin D3) 50 50 mcg PO TID #90 caps 08/24/21 05/28/22 Rx mcg (2,000 unit) capsule nortriptyline 10 mg capsule 10 mg PO HS #30 caps 02/08/22 05/28/22 Rx cyanocobalamin (vitamin B-12) 1,000 mcg IM .COMPLEX #1 mL 04/12/22 05/28/22 Rx 1,000 mcg/mL injection solution Patient History Family History Other Hypertension No family history of adverse response to anesthesia No family history of bleeding disorder Social History Smoking Status: Never smoker Second Hand Exposure: No; Do You Dip or Chew Tobacco: No; Hx Alcohol Use: Yes Alcohol type: beer Alcohol Intake Frequency Comment: 1-2 a week Hx Substance Use: No Preferred Language: Turkish Communication Ability: Effective Communication Ability Comment: Pt is mentally delayed Coremaking Machine Operator Required: No Beliefs That Will Affect Care: None Current Living Situation: Family Other Information That Helps Us Care for You: No Feels Safe at Home: Yes Safety Concerns: Feels Safe At This Time Assistive Devices: None Review of Systems Review of Systems: All systems reviewed & are unremarkable except as noted in HPI & below Physical Exam Constitutional: WD/WN, vitals as above Eyes: PERRL, conjunctivae normal, anicteric sclerae Respiratory: normal respiratory effort, lungs clear to auscultation Cardiovascular: RRR, no murmur, no edema Gastrointestinal (Abdomen): normal bowel sounds, soft, nontender, no hepatosplenomegaly Skin: no rashes, warm and dry Psychiatric: A+Ox3, euthymic affect slow to respond to questions, difficul ty answering questions Results & Data ([facility]) Vital Signs (Past 12 Hours) Vital Signs Temp Pulse Pulse Pulse Resp BP BP 05/29/22 08:00 75 05/29/22 08:00 05/29/22 08:00 36.9 C 104 H 20 151/99 H 05/29/22 01:20 106 H 05/29/22 02:19 36.8 C 96 H 18 05/29/22 01:26 36.8 C 96 H 20 147/86 H 05/29/22 00:45 117 H 18 176/92 H BP Pulse Ox O2 Del Method 05/29/22 08:00 05/29/22 08:00 Room Air 05/29/22 08:00 97 Room Air 05/29/22 01:20 05/29/22 02:19 128/83 96 Room Air 05/29/22 01:26 97 Room Air 05/29/22 00:45 96 Room Air
--- NOTE | 2022-05-29 15:27 | Electrocardiogram Report ---
Test Reason : Blood Pressure : / mmHG Vent. Rate : 091 BPM Atrial Rate : 091 BPM P-R Int : 130 ms QRS Dur : 086 ms QT Int : 370 ms P-R-T Axes : 046 -16 013 degrees QTc Int : 455 ms Normal sinus rhythm Possible Left atrial enlargement Borderline ECG No previous ECGs available Confirmed by Tesfaye Jeffrey ([id number]) on 05/29/2022 3:26:33 PM Referred By: Kevin Milton Confirmed By:Tesfaye Jeffrey
[2022-05-29 16:38] LABS: INR 1.3 (0.9-1.1); Prothrombin Time 13.5 Seconds (9.0-12.0)
[2022-05-29 16:47] LABS: Albumin Level 3.8 gm/dl (3.4-5.0); Bilirubin Direct 0.3 mg/dl (0-0.2); Bilirubin,Total 1.5 mg/dl (0.2-1.0)
[2022-05-29 16:52] LABS: Total Protein 6.2 gm/dl (6.0-8.3)
--- NOTE | 2022-05-29 17:59 | Discharge Summary ---
Date of Service May 29, 2022 Admission HPI Per Admitting Provider A 26-year-old male with past medical history significant for developmental articulation disorder, developmental coordination disorder, high functioning mental disorder. He lives with his mom. As per the mom, he goes to a full-time job. Last 2 to 3 months, he is having headaches. He takes Tylenol and Motrin also. He takes Tylenol and after 10 minutes he says the pain is not gone and asks for more medication. As per mother, he does not understand that he should not take the extra pills, and she is worried that he is taking more than usual medications. About one month ago, he also got somewhat agitated because of the pain. On and off, he gets some nausea and vomiting. No recent fever or chills. In the morning, he gets cough. The patient is currently resting comfortably, hemodynamically stable. Currently, denies any headache or abdominal pain. As per mother, he was lately also complaining of some abdominal pain. Currently, denies any nausea. Currently, denies any chest pain or cough. He says he is ghaving normal bowel and bladder movements. He is ambulating okay. His appetite is okay. His total bilirubin is 1.2, AST 53, ALT 75. Poison Control recommended N-acetylcysteine protocol and check the LFTs again after 12 hours from the hanging of the third bag. His Tylenol level is okay, less than 3. Salicylate level is less than 3, and his urine drug screen is negative. Admission Exam Per Admitting Provider GENERAL: The patient is of moderate build, not in acute distress. VITAL SIGNS: Temperature 36.6, pulse 97, respiratory rate 18, blood pressure 151/86, oxygen 97% on room air. HEENT: Pupils equal, round, and reactive to light. Oral mucosa moist. NECK: No JVD, no neck masses. CARDIOVASCULAR: S1 and S2 heard. Regular rate and rhythm. No murmur, no gallop. RESPIRATORY SYSTEM: Normal AP diameter. No accessory muscle use. No wheezing or crackles. ABDOMEN: Soft, bowel sounds present, nontender, no distention. CENTRAL NERVOUS SYSTEM: Alert and oriented x3. Speech is clear. Obeys simple commands. Moves extremities. EXTREMITIES: No edema, no erythema. Principal Diagnosis Possible Tylenol overdose Headache Discharge Exam GENERAL: The patient is of moderate build, young M not in acute distress. HEENT: NC/AT, EOMI, Pupils equal, round, and reactive to light. Oral mucosa moist. NECK: No JVD, no neck masses. CARDIOVASCULAR: S1 and S2 heard. Regular rate and rhythm. No murmur, no gallop. RESPIRATORY: Normal AP diameter. No accessory muscle use. No wheezing or crackles. ABDOMEN: Soft, bowel sounds present, nontender, no distention. NEURO: Alert and oriented x3. Speech is clear. Obeys simple commands. Moves extremities. EXTREMITIES: No edema, no erythema. Discharge Data Allergies Allergy/AdvReac Type Severity Reaction Status Date / Time No Known Drug Allergies Allergy Unknown Verified 05/28/22 20:30 Consultations 05/28/22 20:25 ED Decision to Admit Stat 05/29/22 08:00 Consult Gastroenterology Routine Consult Neurology Routine Consult Psychiatry Routine Ordered Studies 05/28/22 17:44 CT Abd and Pelvis [CT abd pelvis IV con only] Stat FINDINGS: Study is mildly degraded by respiratory motion artifact. Clear lung bases. No pneumatosis or pneumoperitoneum. Unremarkable spleen, pancreas and adrenal glands. Hepatic steatosis. 9 mm hypodensity of the hepatic dome, too small to characterize. Contracted gallbladder. Patent portal vein. Unremarkable kidneys. There is no hydronephrosis. Unremarkable urinary bladder. Aorta and IVC are unremarkable. There is no lymphadenopathy. No bowel obstruction or bowel wall thickening. No ascites or mesenteric inflammation. Mild colonic fecal retention. Scattered small bowel air-fluid levels are likely physiologic. No acute fracture identified. Transitional lumbosacral anatomy. Normal appendix. Unremarkable soft tissues. IMPRESSION: 1. No acute intra-abdominal or intrapelvic abnormality. 2. No bowel obstruction or bowel wall thickening. Normal appendix. Hospital Course (1) Headache: (2) Unintentional Tylenol overdose: (3) Abnormal LFTs (liver function tests): (4) Leukocytosis: This is a 26-year-old male with high function developmental delay, who presents with possible Tylenol toxicity. The patient has a chronic headache, taking Tylenol and Motrin more than he is supposed to take as per mother. 1. Possible Tylenol toxicity: LFTs, mild elevation. Poison Control recommended N-acetylcysteine and to check the LFTs again 12 hours after hanging the third bag. IV N-acetylcysteine started in the ED. Currently continues. LFTs only mildly elevated, T bili 1.6. Rechecked LFTs at 4 PM. No significant change from previous. Discussed with GI, okay to restart diet and stop IV NAC. Also discussed with psychiatry at the bedside, given impulsivity, taking more medication than he is supposed to. Patient also seen by neurologist, recommends increasing nortriptyline from 10 mg nightly to 20 mg nightly. Patient should follow-up with his neurologist as outpatient. He can also try as needed use of triptans, such as Maxalt 10 mg SL p.o. as needed for breakthrough headache. 2. Chronic headaches: Follows with neurology, consulted while inpatient, recommendations as above. DISPOSITION:Plan to DC home Total Time Total Time Spent Total Time Spent (In Minutes): 40 Discharge Plan Discharge Items Patient Disposition: Home - Self-Care Reason For Visit: TYLENOL TOXICITY Discharge Diagnosis: Possible Tylenol overdose Headache Activity: Per Instructions section Non-emergency contact: Primary Care Provider Call non-emergency contact if: you have any medication questions and your symptoms worsen Follow-up/Referrals: Kevin Milton MD [Primary Care Provider] - Diet: Regular Addtl Attending Provider Instructions: Follow-up with primary care doctor within 1 week. Follow-up with your neurologist as scheduled. Try to avoid taking Tylenol or NSAIDs such as Motrin or Aleve for headache. As discussed with neurologist in the hospital, you can increase your nortriptyline from 10 mg to 20 mg nightly. Your primary care doctor may recheck your LFTs/lab work at your next appointment. Pending Studies at Discharge: No Stand-Alone Forms: My [facility] [employer], Work/School Release, Smoking Cessation Medications and DC Order Prescriptions: Continued cholecalciferol (vitamin D3) 50 mcg (2,000 unit) capsule 50 mcg PO TID Qty: 90 8RF nortriptyline 10 mg capsule 10 mg PO HS Qty: 30 6RF cyanocobalamin (vitamin B-12) 1,000 mcg/mL solution 1,000 mcg IM .COMPLEX Qty: 1 5RF Rx Instructions: 1,000 mcg IM ONCE A MONTH; Discharge Orders: Discharge Order (Routine); Ordered 05/29/22 Ordered By: Lopez Mederos Admission Data Admit Date/Time: 05/28/22 22:22 Attending Provider: Lopez Mederos Admit Provider: Omari Valladares Primary Care Provider: Kevin Milton Other Providers: Omari Valladares ; Chepe Jaeger ; Johnie Franco ; Jo Green ; Sunshine Shrestha ; Tyrel Juan ; Sunshine Francis ; Juvencio Johnson ; Chelsie Escamilla ; Dilshad Nielsen ; Thelma Marsh ; Latrice Olivia ; Tyrel Vela ; Yovany Mathew ; Krupa Lopez ; Jazmin Elizabeth ; Kevin Bonds ; Jillian Petersen ; Aroldo Green ; Shara Dooley ; Gisela Calix ; Dilia George ; Kristie Mckee. ; Maureen,Enmanuel ; Caleb Jordan ; Benito Reynoso ; Paul Michel. ; Nolan Leos. ; Alexia Teague ; Mary Jane Wong ; Yani Benavides ; Rashida Eduardo ; Usman Johnson ; Nathan Mathews ; Morgan Gold ; Rhonda Canchola ; Bryanna Lerma Jr
--- NOTE | 2022-05-29 18:35 | Psychiatric Consultation ---
Date of Consultation May 29, 2022 Impression / Recommendations Impression 26 yo male with limited ability to understand the risks of OTC medications given his intellectual disability. (1) Unintentional Tylenol overdose: Plan mother secures medications, he has been counseled re: risks of medications, f/u neuro re: options for MACIEL as breakthrough despite TCA (low dose) prophylaxis. Discussed concept of rebound MACIEL. 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 there is no indication for acute inpatient hospitalization at this time Psych History Identifying Data 26 yo male from [place] with hx of intellectual disability, seen with mother and Dr. Mederos at bedside. Consult is by hospitalist service for overuse of OTC meds. Chief Complaint chronic MACIEL History of Present Illness No psych history. Patient is not understanding of risks fo medications, mother secures at homes and he is generally compliant but he does work parttime and can go to stores on his own and takes unknown amount of Tylenol and Motrin for his MACIEL that exceeds package labelling. There is no indication that he is intentionally trying to harm himself. He has never attempted self-harm or engaged in SIB. Mother adds, "I had no problem with him until he turned 26" and smiled. She is relieved that he got checked out. Allergies Allergy/AdvReac Type Severity Reaction Status Date / Time No Known Drug Allergies Allergy Unknown Verified 05/28/22 20:30 Home Medications Medication Instructions Recorded Confirmed Type cholecalciferol (vitamin D3) 50 50 mcg PO TID #90 caps 08/24/21 05/28/22 Rx mcg (2,000 unit) capsule nortriptyline 10 mg capsule 10 mg PO HS #30 caps 02/08/22 05/28/22 Rx cyanocobalamin (vitamin B-12) 1,000 mcg IM .COMPLEX #1 mL 04/12/22 05/28/22 Rx 1,000 mcg/mL injection solution Personal History Beliefs That Will Affect Care: None Patient History Medical History Headache Vitamin B12 deficiency Vitamin D deficiency Family History Other Hypertension No family history of adverse response to anesthesia No family history of bleeding disorder Social History Smoking Status: Never smoker Second Hand Exposure: No; Do You Dip or Chew Tobacco: No; Hx Alcohol Use: Yes Alcohol type: beer Alcohol Intake Frequency Comment: 1-2 a week Hx Substance Use: No Preferred Language: Dutch Communication Ability: Effective Communication Ability Comment: Pt is mentally delayed Order Manager Required: No Beliefs That Will Affect Care: None Current Living Situation: Family Other Information That Helps Us Care for You: No Feels Safe at Home: Yes Safety Concerns: Feels Safe At This Time Assistive Devices: None Physical Exam Psychiatric: Orientation: alert Apperance: appropriately groomed Eye Contact: good eye contact Motor Behavior: no abnormal motor movements Speech: + abnormal rate/rhythm/volume of speech (non spontaneous) Affect: + blunted affect Mood: no depressed mood Thought Process: + concrete thought process Thought Content: reality based without delusions Suicidal Thoughts: denies suicidal thoughts Homicidal Thoughts: denies homicidal thoughts Hallucinations: no auditory hallucinations and no visual hallucinations Cognition: attention grossly intact and language grossly intact Estimated Intelligence: + below average estimated intelligence Insight: + limited insight Judgement: + limited judgement Vital Signs (Past 24 Hours): Last Vital Signs Temp 36.9 C 05/29/22 18:01 Pulse 96 H 05/29/22 18:01 Resp 19 05/29/22 18:01 BP 128/83 05/29/22 18:01 Pulse Ox 96 05/29/22 18:01 O2 Del Method 05/29/22 15:54 Review of Systems All systems reviewed & are unremarkable except as noted in HPI & below Results & Data (PSY) Laboratory Results Labs 05/28/22 05/28/22 05/28/22 17:49 17:49 18:06 WBC RBC Hgb Hct MCV MCH MCHC RDW Std Deviation RDW Coeff of Matthew Plt Count MPV Immature Gran % (Auto) Neut % (Auto) Lymph % (Auto) [place] % (Auto) Eos % (Auto) Baso % (Auto) Neut # (Auto) Lymph # (Auto) [place] # (Auto) Eos # (Auto) Baso # (Auto) Immature Gran # (Auto) PT INR APTT PTT Ratio Sodium Potassium Chloride Carbon Dioxide Anion Gap BUN Creatinine Est Cr Clr Drug Dosing Est GFR ( Amer) Est GFR (Non-Af Amer) BUN/Creatinine Ratio Glucose Calcium Magnesium Total Bilirubin Direct Bilirubin AST ALT Alkaline Phosphatase Total Protein Albumin Globulin Albumin/Globulin Ratio Lipase Urine Color Yellow Urine Appearance Clear Urine pH 7.5 Ur Specific [place] 1.023 Urine Protein Trace H Urine Glucose (UA) Negative Urine Ketones Negative Urine Blood Negative Urine Nitrite Negative Urine Bilirubin Negative Urine Urobilinogen Negative Ur Leukocyte Esterase Negative Urine WBC (Auto) 1-5 Urine RBC (Auto) 0-4 U Hyaline Cast (Auto) 1-5 U Epithel Cells (Auto) 10-20 H Urine Bacteria (Auto) Negative Salicylates Urine Opiates Screen Neg Ur Methadone, Qual Neg Acetaminophen Urine Barbiturates Neg Ur Phencyclidine (PCP) Neg U Amphetamin/Meth Scrn Neg MDMA (Ecstasy) Screen Neg U Benzodiazepines Scrn Neg Ur Cocaine Metabolite Neg U Marijuana (THC) Screen Neg SARS-CoV-2, RNA, NAAT NEGATIVE 05/28/22 05/28/22 05/28/22 18:11 18:11 18:11 WBC 17.75 H RBC 5.43 Hgb 16.4 Hct 46.6 MCV 85.8 MCH 30.2 MCHC 35.2 RDW Std Deviation 38.3 RDW Coeff of Matthew 12.2 Plt Count 273 MPV 9.5 Immature Gran % (Auto) 0.3 Neut % (Auto) 74.2 Lymph % (Auto) 18.4 [place] % (Auto) 6.4 Eos % (Auto) 0.4 Baso % (Auto) 0.3 Neut # (Auto) 13.17 H Lymph # (Auto) 3.26 [place] # (Auto) 1.14 H Eos # (Auto) 0.07 Baso # (Auto) 0.06 Immature Gran # (Auto) 0.05 H PT 12.4 H INR 1.2 H APTT 27.9 PTT Ratio 1.0 Sodium 140 Potassium 3.6 Chloride 107 Carbon Dioxide 23 Anion Gap 10 BUN 19 Creatinine 0.84 Est Cr Clr Drug Dosing 177.7 Est GFR ( Amer) 138.1 Est GFR (Non-Af Amer) 119.2 BUN/Creatinine Ratio 22.6 H Glucose 92 Calcium 9.5 Magnesium Total Bilirubin 1.2 H Direct Bilirubin AST 53 H ALT 75 H Alkaline Phosphatase 56 Total Protein 7.6 Albumin 4.5 Globulin 3.1 Albumin/Globulin Ratio 1.5 Lipase 45 Urine Color Urine Appearance Urine pH Ur Specific [place] Urine Protein Urine Glucose (UA) Urine Ketones Urine Blood Urine Nitrite Urine Bilirubin Urine Urobilinogen Ur Leukocyte Esterase Urine WBC (Auto) Urine RBC (Auto) U Hyaline Cast (Auto) U Epithel Cells (Auto) Urine Bacteria (Auto) Salicylates Urine Opiates Screen Ur Methadone, Qual Acetaminophen Urine Barbiturates Ur Phencyclidine (PCP) U Amphetamin/Meth Scrn MDMA (Ecstasy) Screen U Benzodiazepines Scrn Ur Cocaine Metabolite U Marijuana (THC) Screen SARS-CoV-2, RNA, NAAT 05/28/22 05/28/22 05/29/22 18:11 21:04 05:37 WBC RBC Hgb Hct MCV MCH MCHC RDW Std Deviation RDW Coeff of Matthew Plt Count MPV Immature Gran % (Auto) Neut % (Auto) Lymph % (Auto) [place] % (Auto) Eos % (Auto) Baso % (Auto) Neut # (Auto) Lymph # (Auto) [place] # (Auto) Eos # (Auto) Baso # (Auto) Immature Gran # (Auto) PT INR APTT PTT Ratio Sodium 140 Potassium 3.5 Chloride 108 H Carbon Dioxide 23 Anion Gap 9 BUN 14 Creatinine 0.73 Est Cr Clr Drug Dosing 204.5 Est GFR ( Amer) 146.3 Est GFR (Non-Af Amer) 126.2 BUN/Creatinine Ratio 19.2 Glucose 113 H Calcium 8.4 L Magnesium 1.9 Total Bilirubin 1.6 H Direct Bilirubin 0.3 H AST 35 ALT 60 H Alkaline Phosphatase 44 Total Protein 6.3 Albumin 3.9 Globulin Albumin/Globulin Ratio Lipase Urine Color Urine Appearance Urine pH Ur Specific [place] Urine Protein Urine Glucose (UA) Urine Ketones Urine Blood Urine Nitrite Urine Bilirubin Urine Urobilinogen Ur Leukocyte Esterase Urine WBC (Auto) Urine RBC (Auto) U Hyaline Cast (Auto) U Epithel Cells (Auto) Urine Bacteria (Auto) Salicylates < 3.0 L Urine Opiates Screen Ur Methadone, Qual Acetaminophen < 3 L Urine Barbiturates Ur Phencyclidine (PCP) U Amphetamin/Meth Scrn MDMA (Ecstasy) Screen U Benzodiazepines Scrn Ur Cocaine Metabolite U Marijuana (THC) Screen SARS-CoV-2, RNA, NAAT NEGATIVE 05/29/22 05/29/22 05/29/22 05:37 16:19 16:19 WBC 10.43 RBC 4.95 Hgb 15.3 Hct 42.3 MCV 85.5 MCH 30.9 MCHC 36.2 H RDW Std Deviation 37.9 RDW Coeff of Matthew 12.3 Plt Count 217 MPV 9.4 Immature Gran % (Auto) 0.3 Neut % (Auto) 60.1 Lymph % (Auto) 30.0 [place] % (Auto) 8.0 Eos % (Auto) 1.2 Baso % (Auto) 0.4 Neut # (Auto) 6.28 Lymph # (Auto) 3.13 [place] # (Auto) 0.83 H Eos # (Auto) 0.12 Baso # (Auto) 0.04 Immature Gran # (Auto) 0.03 H PT 13.5 H INR 1.3 H APTT PTT Ratio Sodium Potassium Chloride Carbon Dioxide Anion Gap BUN Creatinine Est Cr Clr Drug Dosing Est GFR ( Amer) Est GFR (Non-Af Amer) BUN/Creatinine Ratio Glucose Calcium Magnesium Total Bilirubin 1.5 H Direct Bilirubin 0.3 H AST 36 ALT 66 H Alkaline Phosphatase 45 Total Protein 6.2 Albumin 3.8 Globulin Albumin/Globulin Ratio Lipase Urine Color Urine Appearance Urine pH Ur Specific [place] Urine Protein Urine Glucose (UA) Urine Ketones Urine Blood Urine Nitrite Urine Bilirubin Urine Urobilinogen Ur Leukocyte Esterase Urine WBC (Auto) Urine RBC (Auto) U Hyaline Cast (Auto) U Epithel Cells (Auto) Urine Bacteria (Auto) Salicylates Urine Opiates Screen Ur Methadone, Qual Acetaminophen Urine Barbiturates Ur Phencyclidine (PCP) U Amphetamin/Meth Scrn MDMA (Ecstasy) Screen U Benzodiazepines Scrn Ur Cocaine Metabolite U Marijuana (THC) Screen SARS-CoV-2, RNA, NAAT Coding Level of Care Code 89295 [facility] Intl Hosp Care Lvl 2 Diagnoses Unintentional Tylenol overdose T39.1X1A
== END 2022-05-29 18:23 | disposition home or self-care (01) | DRG 918 ==
LOC: ED 17:04 → 2S 22:22